=== PATIENT | male | born 1950 | race Hispanic/Latino ===

== ENCOUNTER → 2019-05-12 | Day surgery (SDC) | payer MEDICARE ==
--- NOTE | 2019-05-10 16:00 | Diagnostic Imaging Report ---
EXAMINATION: CHEST 2 VIEWS INDICATION: Pre-operative COMPARISON: None FINDINGS: TUBES and LINES: None. LUNGS: The lung volumes are normal. No focal consolidation or pulmonary edema. PLEURA: No pleural effusion or pneumothorax. HEART AND MEDIASTINUM: The cardiomediastinal silhouette is normal in size and contour. BONES AND SOFT TISSUES: No acute fracture or dislocation. UPPER ABDOMEN: No free air under the diaphragm. IMPRESSION: No focal pneumonia or pulmonary edema. Signed by: Boris Erickson MD on 05/10/2019 3:57 PM
[2019-05-10 17:52] LABS: BASOPHILS % 0.4 % (0.0-1.0); EOSINOPHILS # (AUTO) 0.1 (0.0-0.4); EOSINOPHILS % 1.6 % (0.0-6.0); HEMATOCRIT 42.8 % (38.2-49.6); HEMOGLOBIN 14.9 g/dL (14.0-18.0); LYMPHOCYTES # (AUTO) 1.4 (1.0-3.2); LYMPHOCYTES % 25.9 % (18.0-39.1); MEAN CORPUSCULAR HEMOGLOBIN 30.7 pg (28-32); MEAN CORPUSCULAR HGB CONC 34.8 g/dL (31-35); MEAN CORPUSCULAR VOLUME 88.1 fL (81-99); MONOCYTES # (AUTO) 0.5 (0.2-0.8); MONOCYTES % 8.3 % (4.4-11.3); NEUTROPHILS # (AUTO) 3.5 (2.1-6.9); NEUTROPHILS % 63.3 % (38.7-80.0); PLATELET COUNT 158 x10e3/uL (140-360); RED BLOOD COUNT 4.86 x10e6/uL (4.3-5.7); RED CELL DISTRIBUTION WIDTH 13.5 % (11.7-14.4)
[~2019-05-12] MED LIST: AUGMENTIN 500-1 EACH PO; DEXAMETHASONE SOD PHOS INJ 4 MG/ML VIAL ONE; FENTANYL CITRATE/PF 100MCG/2 ML INJ ONE; GENTAMICIN 120MG/NS 100ML 100 ML ONE; IOPAMIDOL 610MG/1ML 300 MG/ML VIAL IV ONE; LIDOCAINE HCL 2% LOCAL INJ 5 ML SDV VIAL INJ ONE; MIDAZOLAM HCL 2 MG/2 ML VIAL ONE; ONDANSETRON HCL INJ 2MG/ML 2ML 2 MG/ML VIAL ONE; PROPOFOL IV EMULSION 10 MG/ML 20 ML VIAL ONE; SEVOFLURANE INHAL SOLN 250 ML PEN BTL ONE
--- OUTSIDE RECORDS SUMMARY | 2019-05-12 05:30 | XMS REPORT ---
Author [facility] Address Unknown Phone Unavailable Care Team Providers Care Cardiology Specialist Name Role Phone MANDY DIMAS Unavailable Unavailable Problems This patient has no known problems. Allergies, Adverse Reactions, Alerts This patient has no known allergies or adverse reactions. Medications This patient has no known medications. Results Test Description Test Time Test Comments Text Results Atomic Results Result Comments CHEST 2 VIEWS 2019-05-10 15:55:00 [place] [id number] Patient Name: NINA RAM I MR #: [id number] : 1950 Age/Sex: 68/M Req #: [id number] Adm Physician: Ordered by: MANDY DIMAS MD Report #: [id number] Location: OR Room/Bed: Procedure: [id number] DX/CHEST 2 VIEWS Exam Date: 05/10/19 Exam Time: 1537 REPORT STATUS: Signed EXAMINATION: CHEST 2 VIEWS INDICATION: Pre-operative COMPARISON: None FINDINGS: TUBES and LINES: None. LUNGS: The lung volumes are normal. No focal consolidation or pulmonary edema. PLEURA: No pleural effusion or pneumothorax. HEART AND MEDIASTINUM: The cardiomediastinal silhouette is normal in size and contour. BONES AND SOFT TISSUES: No acute fracture or dislocation. UPPER ABDOMEN: No free air under the diaphragm. IMPRESSION: No focal pneumonia or pulmonary edema. Signed by: Agatha Erickson MD on 05/10/2019 3:57 PM Dictated By: AGATHA ERICKSON MD [id number] Transcribed By: PITA on 05/10/19 [id number] COPY TO: MANDY DIMAS MD
[2019-05-12 08:50] VITALS: BP 139/83
--- NOTE | 2019-05-12 13:23 | Operative Report ---
DATE OF PROCEDURE: 05/12/2019 SURGEON: Arben Almonte MD PREOPERATIVE DIAGNOSIS: Bladder stones total burden greater than 6 cm. POSTOPERATIVE DIAGNOSIS: Bladder stones total burden greater than 6 cm. PROCEDURES: Staged cystolitholapaxy with holmium laser. ANESTHESIA: General. ESTIMATED BLOOD LOSS: Minimal. INDICATIONS: Mr. Rodriguez is a 68-year-old male who was found to have approximately 6 to 7 greater than 1 cm bladder stones in the bladder. He and I had a long discussion about alternatives, risks, and the benefits including doing nothing, laser lithotripsy, open excision. He voiced understanding of the options, alternatives, risks, and benefits and elected to proceed. PROCEDURE IN DETAIL: After informed consent was obtained, the patient was taken to the operative suite, placed supine on the operating table, underwent general anesthesia by Anesthesia Service. A time-out was taken. The patient was given prophylactic antibiotics. A 22.5-[place] cystoscope was inserted per urethra. Normal urethra was noted with severe trilobar prostatic hypertrophy. Panendoscopy of the bladder revealed [id number] trabeculation. There were a total of eight 1 cm stones on the floor of the bladder. The scope was inverted so the blunt tip of the beak would sit across the median lobe of the prostate. Utilizing 1000 micron laser fiber, the stone was then addressed. Multiple fragments were created. These were drained into , photograph of which was taken approximately one-third of way through. After approximately 30 minutes of lasering due to bladder neck/prostate oozing, visualization became difficult. At this time, the procedure was stopped. All fragments were evacuated that could be. Bladder was drained. The patient was awakened from anesthesia and transferred to the recovery room in excellent condition with expectations to return for a staged second look. Arben Almonte MD ES/MODL /[id number]
== END | disposition home or self-care (01) ==
LOC: OR 05:00
PROVIDERS: ATTEND Urology
DX: N21.0 Calculus in bladder (principal); N32.89 Other specified disorders of bladder; N40.1 Benign prostatic hyperplasia with lower urinary tract symptoms; R35.1 Nocturia; N20.0 Calculus of kidney; N39.0 Urinary tract infection, site not specified; I10 Essential (primary) hypertension; Z01.810 Encounter for preprocedural cardiovascular examination; Z01.812 Encounter for preprocedural laboratory examination; Z01.818 Encounter for other preprocedural examination; Z68.30 Body mass index [BMI] 30.0-30.9, adult; Z87.891 Personal history of nicotine dependence
CPT/HCPCS: 36415; 52318; 71046; 85025; 93005; J1100; J1580; J2001; J2250; J2405; J2704; J3010

== ENCOUNTER → 2019-06-11 | Day surgery (SDC) | payer MEDICARE ==
[~2019-06-11] MED LIST changes: +CEFTRIAXONE SOD 1 GM/NS 50 ML 50 ML IV ONE; -GENTAMICIN 120MG/NS 100ML 100 ML ONE; +KETOROLAC TROMETHAMINE 30 MG/ML VIAL ONE
[2019-06-11 08:30] VITALS: BP 131/82
--- NOTE | 2019-06-11 10:40 | Operative Report ---
DATE OF PROCEDURE: 06/11/2019 SURGEON: Arben Almonte MD PREOPERATIVE DIAGNOSIS: Bladder stone. POSTOPERATIVE DIAGNOSIS: Bladder stone. PROCEDURE: Staged cystolitholapaxy greater than 2.5 cm. ANESTHESIA: General. ESTIMATED BLOOD LOSS: Minimal. COMPLICATIONS: None. INDICATIONS: Mr. Rodriguez is a very pleasant 68-year-old male patient with a history of greater than 5 cm of bladder calculi, now presenting for staged clean up. He voiced understanding options, alternatives, risks, and benefits and elected to proceed. PROCEDURE IN DETAIL: After informed consent was obtained, the patient was taken to the operative suite, placed supine on the operating table, underwent general anesthesia by Anesthesia service, placed in the dorsal lithotomy position, sterilely prepped and draped for cystoscopy. A 22.5-[place]izen [place] cystoscope was inserted per urethra. Utilizing a 1000 micron laser fiber, the stones were obliterated and the smaller fragments to be Ellik evacuated by the bladder. All the stones were dusted completely. Bladder was then drained stone free. The patient was awakened from anesthesia and transferred to recovery room in excellent condition. Arben Almonte MD ES/MODL /[id number] cc: Bea Hernandez MD
== END | disposition home or self-care (01) ==
LOC: OR 05:00
PROVIDERS: ATTEND Urology
DX: N21.0 Calculus in bladder (principal); N20.0 Calculus of kidney; R31.0 Gross hematuria; N40.1 Benign prostatic hyperplasia with lower urinary tract symptoms; R35.1 Nocturia; I10 Essential (primary) hypertension; N39.0 Urinary tract infection, site not specified
CPT/HCPCS: 88300; J0696; J1100; J1885; J2001; J2250; J2405; J3010

== ENCOUNTER 2023-04-16 11:38 | Observation (INO) | payer MEDICARE ==
[2023-04-14 10:38] LABS: BASOPHILS # (AUTO) 0.1 (0.0-0.1); BASOPHILS % 0.8 % (0.0-1.0); EOSINOPHILS # (AUTO) 0.1 (0.0-0.4); EOSINOPHILS % 1.4 % (0.0-6.0); HEMATOCRIT 44.9 % (38.2-49.6); HEMOGLOBIN 15.5 g/dL (14.0-18.0); LYMPHOCYTES # (AUTO) 1.7 (1.0-3.2); MEAN CORPUSCULAR HEMOGLOBIN 29.6 pg (28-32); MEAN CORPUSCULAR HGB CONC 34.5 g/dL (31-35); MEAN CORPUSCULAR VOLUME 85.7 fL (81-99); MONOCYTES # (AUTO) 0.5 (0.2-0.8); MONOCYTES % 9.2 % (4.4-11.3); NEUTROPHILS # (AUTO) 3.5 (2.1-6.9); NEUTROPHILS % 60.1 % (38.7-80.0); PLATELET COUNT 144 x10e3/uL (140-360); RED BLOOD COUNT 5.24 x10e6/uL (4.3-5.7); RED CELL DISTRIBUTION WIDTH 12.4 % (11.7-14.4)
[2023-04-14 10:57] LABS: ALBUMIN/GLOBULIN RATIO 1.2 (0.8-2.0); CALCIUM 8.7 mg/dL (8.4-10.2); CREATININE, SERUM 0.89 mg/dL (0.72-1.25)
[~2023-04-16] VITALS: Ht 182.9 cm; Wt 87.5 kg
[~2023-04-16 11:38] MED LIST changes: +AVODART0.5 MG PO; -CEFTRIAXONE SOD 1 GM/NS 50 ML 50 ML IV ONE; -DEXAMETHASONE SOD PHOS INJ 4 MG/ML VIAL ONE; -FENTANYL CITRATE/PF 100MCG/2 ML INJ ONE; +FLOMAX0.4 MG PO; -IOPAMIDOL 610MG/1ML 300 MG/ML VIAL IV ONE; -KETOROLAC TROMETHAMINE 30 MG/ML VIAL ONE; -LIDOCAINE HCL 2% LOCAL INJ 5 ML SDV VIAL INJ ONE; -MIDAZOLAM HCL 2 MG/2 ML VIAL ONE; -ONDANSETRON HCL INJ 2MG/ML 2ML 2 MG/ML VIAL ONE; -PROPOFOL IV EMULSION 10 MG/ML 20 ML VIAL ONE; -SEVOFLURANE INHAL SOLN 250 ML PEN BTL ONE
[2023-04-16] MEDS ORDERED: CEFAZOLIN SODIUM 2 GM ONE (12:04)
[2023-04-16] MEDS ORDERED: LACTATED RINGER'S 1,000 ML ONE (12:04)
[2023-04-16] MEDS ORDERED: FENTANYL CITRATE/PF 100MCG/2 ML INJ ONE (13:09)
[2023-04-16] MEDS ORDERED: PROPOFOL IV EMULSION 10 MG/ML 20 ML VIAL ONE (13:40)
[2023-04-16] MEDS ORDERED: LIDOCAINE HCL 2% LOCAL INJ 5 ML SDV VIAL INJ ONE (13:40)
[2023-04-16] MEDS ORDERED: SEVOFLURANE INHAL SOLN 250 ML PEN BTL ONE (13:40)
[2023-04-16] MEDS ORDERED: ROCURONIUM BROMIDE 10 MG/ML 5ML VIAL IV ONE (13:40)
[2023-04-16] MEDS ORDERED: ONDANSETRON HCL INJ 2MG/ML 2ML 2 MG/ML VIAL ONE (13:40)
[2023-04-16] MEDS ORDERED: EPHEDRINE SULFATE INJ 50 MG/ML VIAL ONE (13:40)
[2023-04-16] MEDS ORDERED: POVIDONE IODINE 0.05% 0.05 % ML PO ONE (13:40)
[2023-04-16] MEDS ORDERED: DEXAMETHASONE SOD PHOS INJ 4 MG/ML SDV ONE (13:40)
[2023-04-16] MEDS ORDERED: IOPAMIDOL 610MG/1ML 300 MG/ML VIAL IV ONE (14:03)
[2023-04-16] MEDS ORDERED: ACETAMINOPHEN 1000 MG/100 ML 100 ML IV ONE (14:19)
[2023-04-16] MEDS ORDERED: HYDROCODONE/APAP 5MG-325MG TAB PO PRN (18:15)
[2023-04-16] MEDS ORDERED: HYDROMORPHONE 1MG/1ML INJ IV PRN (18:45)
[2023-04-16 18:50] VITALS: BP 132/70; PULSE 56; RESP 20; TEMP 97.7; O2SAT 100
[2023-04-16] MEDS ORDERED: ONDANSETRON HCL INJ 2MG/ML 2ML 2 MG/ML VIAL IV PRN (19:00)
[2023-04-16] MEDS: LACTATED RINGER'S 1,000 ML INJ SCH (19:02)
[2023-04-16] MEDS ORDERED: TAMSULOSIN HCL 0.4 MG CAP PO ONE (19:30)
[2023-04-16 20:00] VITALS: BP 132/72; PULSE 56; RESP 17; TEMP 96.7; O2SAT 100
[2023-04-16 21:00] VITALS: BP 132/72; PULSE 56; RESP 17; TEMP 96.7; O2SAT 100
[2023-04-17] VITALS: BP 139/82; PULSE 71; RESP 17; TEMP 97.6; O2SAT 99
[2023-04-17] MEDS: LACTATED RINGER'S 1,000 ML INJ SCH ×2 (02:51→11:37)
[2023-04-17 04:00] VITALS: BP 123/68; PULSE 72; RESP 17; TEMP 98.4; O2SAT 98
[2023-04-17 08:15] VITALS: BP 118/70; PULSE 80; RESP 16; TEMP 98.2; O2SAT 100
[2023-04-17 08:49] VITALS: BP 118/70; PULSE 80; RESP 16; TEMP 98.2; O2SAT 100
[2023-04-17 08:50] VITALS: BP 121/77; PULSE 72; RESP 20; TEMP 98.1; O2SAT 100
[2023-04-17] MEDS ORDERED: FINASTERIDE 5 MG TAB PO SCH (09:00)
[2023-04-17 11:48] VITALS: BP 139/86; PULSE 80; RESP 18; TEMP 98.4; O2SAT 99
[2023-04-17] MEDS ORDERED: ONDANSETRON HCL 4 MG ORAL DISINTEGRATING TAB PO PRN (14:15)
== END 2023-04-17 15:57 | disposition home or self-care (01) ==
LOC: OR 11:38 → PACU V 16:15 → MED/SURG3 18:30
PROVIDERS: ADMIT Urology; ATTEND Urology
DX: N21.0 Calculus in bladder (principal); N40.1 Benign prostatic hyperplasia with lower urinary tract symptoms; N13.8 Other obstructive and reflux uropathy; R33.8 Other retention of urine; N35.919 Unspecified urethral stricture, male, unspecified site; N32.89 Other specified disorders of bladder; Z01.810 Encounter for preprocedural cardiovascular examination; Z01.812 Encounter for preprocedural laboratory examination; Z01.818 Encounter for other preprocedural examination; Z87.891 Personal history of nicotine dependence
CPT/HCPCS: 36415; 52318; 52601; 71046; 74420; 80053; 85025; 88300; 88305; 93005; C1758; G0378 ×2; J0131; J1100; J2001; J2405; J2704; J3010; J7121 ×2; Q9967